=== PATIENT | female | born 1930 | race Caucasian/White ===

== ENCOUNTER → 2017-01-19 | Outpatient (REF) | payer MEDICARE ==
[~2017-01-19] MED LIST: ACET650T2 PO; AMLO25TA PO; ASPI81TA85 PO; ATOR40TA PO; FENO200C PO; INSUH10VL SC; INSULANT SC; LASI40TA PO; LIPI20TA PO; LOSA100T36 PO; MAGN500T2 PO; OMEP20CA3 PO; PLAV75TA38 PO; PRAM0.5T4 PO; TRAM50TA2 PO; TYLE325T5 PO
== END ==
LOC: M LAB REF 16:46
PROVIDERS: ATTEND Podiatrist
DX: E11.42 Type 2 diabetes mellitus with diabetic polyneuropathy (principal); L03.031 Cellulitis of right toe

== ENCOUNTER → 2018-04-12 | Outpatient (CLI) | payer MEDICARE ==
[2018-04-12 20:10] LABS: BASO # 0.1 10^3/uL (0.0-0.2); BASO % 0.7 % (0.0-1.0); EOS # 0.1 10^3/uL (0.0-0.50); EOS % 0.8 % (0.0-3.0); HEMATOCRIT 41.9 % (36.0-47.0); HEMOGLOBIN 13.5 g/dl (12.0-15.5); IMMATURE GRANULOCYTE % 0.2 % (0-3.0); LYMPH # 1.4 10^3/uL (1.5-4.5); LYMPH % 15.2 % (24.0-44.0); MEAN CORPUSCULAR HEMOGLOBIN 29.6 pg (27.0-33.0); MEAN CORPUSCULAR HGB CONC 32.2 g/dl (32.0-36.5); MEAN CORPUSCULAR VOLUME 91.9 fl (80.0-96.0); MONO # 0.9 10^3/uL (0.0-0.8); MONO % 10.2 % (0.0-5.0); NEUTROPHILS # 6.6 10^3/uL (1.8-7.7); NEUTROPHILS % 72.9 % (36.0-66.0); PLATELET COUNT, AUTOMATED 273 10^3/uL (150-450); RED BLOOD COUNT 4.56 10^6/uL (4.00-5.40); RED CELL DISTRIBUTION WIDTH 13.3 % (11.5-14.5); WHITE BLOOD COUNT 9.1 10^3/uL (4.0-10.0)
[2018-04-12 20:35] LABS: URIC ACID 5.4 MG/DL (2.6-6.0)
== END ==
LOC: M WUC 17:18
DX: M19.032 Primary osteoarthritis, left wrist (principal)
CPT/HCPCS: 84550

== ENCOUNTER 2018-06-02 18:01 | Emergency (ER) | payer MEDICARE ==
[2018-06-02] MEDS: ASPIRIN 81 MG CHEW TABLET PO (18:37)
[2018-06-02 18:44] LABS: BASO % 0.7 % (0.0-1.0); EOS # 0.1 10^3/uL (0.0-0.50); HEMOGLOBIN 12.9 g/dl (12.0-15.5); IMMATURE GRANULOCYTE % 0.2 % (0-3.0); LYMPH # 1.5 10^3/uL (1.5-4.5); MEAN CORPUSCULAR HEMOGLOBIN 29.6 pg (27.0-33.0); MEAN CORPUSCULAR HGB CONC 32.3 g/dl (32.0-36.5); MEAN CORPUSCULAR VOLUME 91.7 fl (80.0-96.0); MONO # 0.5 10^3/uL (0.0-0.8); MONO % 9.2 % (0.0-5.0); NEUTROPHILS # 3.4 10^3/uL (1.8-7.7); NEUTROPHILS % 60.9 % (36.0-66.0); PLATELET COUNT, AUTOMATED 242 10^3/uL (150-450); RED BLOOD COUNT 4.36 10^6/uL (4.00-5.40); RED CELL DISTRIBUTION WIDTH 13.7 % (11.5-14.5); WHITE BLOOD COUNT 5.6 10^3/uL (4.0-10.0)
[2018-06-02 18:54] LABS: INR 0.94; PROTHROMBIN TIME 12.7 SECONDS (12.1-14.4)
[2018-06-02 18:55] LABS: PARTIAL THROMBOPLASTIN TIME 26.4 SECONDS (25.4-37.6)
[2018-06-02 19:31] LABS: ANION GAP 8 MEQ/L (8-16); BLOOD UREA NITROGEN 32 MG/DL (7-18); CALCIUM LEVEL 8.8 MG/DL (8.8-10.2); CARBON DIOXIDE LEVEL 31 MEQ/L (21-32); CHLORIDE LEVEL 104 MEQ/L (98-107); CK-MB VALUE MASS 5.1 NG/ML (<3.6); CPK CREATINE PHOSPHOKINASE 196 U/L (26-192); CREATININE FOR GFR 1.44 MG/DL (0.55-1.30); GLOMERULAR FILTRATION RATE 36.5 (>32); GLUCOSE, FASTING 243 MG/DL (70-100); NT-PRO BNP 4335 PG/ML (<450); POTASSIUM SERUM 3.6 MEQ/L (3.5-5.1); SODIUM LEVEL 143 MEQ/L (136-145); TROPONIN I 0.21 NG/ML (< 0.10)
[2018-06-02] MEDS: HEPARIN SOD (PORCINE) 5000 UNITS/ML VIAL IV (20:32)
[2018-06-02] MEDS: HEPARIN DRIP 25,000 UNITS in APPROPRIATE DILUENT 1 EA IV (20:40)
[2018-06-02 20:57] LABS: BEDSIDE GLUCOSE 154 MG/DL (83-110)
== END 2018-06-02 21:18 | disposition short-term general hospital (02) ==
LOC: M ED 18:01
DX: I24.9 Acute ischemic heart disease, unspecified (principal); R06.02 Shortness of breath; I11.9 Hypertensive heart disease without heart failure; I25.10 Atherosclerotic heart disease of native coronary artery without angina pectoris; E78.5 Hyperlipidemia, unspecified; E11.9 Type 2 diabetes mellitus without complications; I69.354 Hemiplegia and hemiparesis following cerebral infarction affecting left non-dominant side; Z95.1 Presence of aortocoronary bypass graft; Z88.0 Allergy status to penicillin; Z79.899 Other long term (current) drug therapy; Z79.02 Long term (current) use of antithrombotics/antiplatelets; Z79.4 Long term (current) use of insulin; Z79.82 Long term (current) use of aspirin
CPT/HCPCS: 71045

== ENCOUNTER 2019-02-18 15:32 | Inpatient (IN) | payer MEDICARE, OTHER ==
[~2019-02-18] VITALS: Ht 162.6 cm; Wt 73.1 kg
[~2019-02-18 15:32] MED LIST changes: -ACET650T2 PO; +ACET650T3 PO; -ATOR40TA PO; +ATOR40TA75 PO; +DULO1CAP2 PO; -LASI40TA PO; +LASI40TA9 PO; -LOSA100T36 PO; +LOSA100T50 PO; +PLAV1TAB2 PO; -PLAV75TA38 PO; -PRAM0.5T4 PO; +PRAM0.5T7 PO; +TRAZ-160 PO; +TRIL1TAB PO
[2019-02-18] MEDS ORDERED: OMEP-218 PO (15:41)
[2019-02-18 16:40] LABS: BASO % 0.5 % (0.0-1.0); EOS # 0.1 10^3/uL (0.0-0.50); EOS % 0.6 % (0.0-3.0); HEMATOCRIT 42.8 % (36.0-47.0); HEMOGLOBIN 14.1 g/dl (12.0-15.5); LYMPH # 1.6 10^3/uL (1.5-4.5); LYMPH % 20.5 % (24.0-44.0); MEAN CORPUSCULAR HGB CONC 32.9 g/dl (32.0-36.5); MEAN CORPUSCULAR VOLUME 94.1 fl (80.0-96.0); MONO # 0.7 10^3/uL (0.0-0.8); MONO % 8.8 % (0.0-5.0); NEUTROPHILS # 5.3 10^3/uL (1.8-7.7); NEUTROPHILS % 69.5 % (36.0-66.0); PLATELET COUNT, AUTOMATED 226 10^3/uL (150-450); RED BLOOD COUNT 4.55 10^6/uL (4.00-5.40); WHITE BLOOD COUNT 7.7 10^3/uL (4.0-10.0)
[2019-02-18] MEDS ORDERED: ONDANSETRON 4MG/2ML VIAL (J2405) IV ONE (16:45)
[2019-02-18] MEDS ORDERED: MORPHINE 2 MG/ML 1ML SYRINGE (J2270) IV PRN (16:45)
[2019-02-18] MEDS ORDERED: NS 500 ML IV ONE (16:45)
[2019-02-18 16:49] LABS: INR 0.95; PROTHROMBIN TIME 12.8 SECONDS (12.1-14.4)
[2019-02-18] MEDS: GASTROGRAFIN SOLUTION 30ML PO SCH ×2 (17:09→17:57)
[2019-02-18 17:17] LABS: PARTIAL THROMBOPLASTIN TIME 26.9 SECONDS (25.4-37.6)
[2019-02-18 17:29] LABS: ALBUMIN 3.3 GM/DL (3.2-5.2); ALT/SGPT 22 U/L (12-78); BILIRUBIN,DIRECT 0.1 MG/DL (0.0-0.2); BILIRUBIN,TOTAL 0.5 MG/DL (0.2-1.0); LIPASE 147 U/L (73-393); TOTAL PROTEIN 6.9 GM/DL (6.4-8.2)
[2019-02-18 18:08] LABS: BLOOD UREA NITROGEN 15 MG/DL (7-18); CALCIUM LEVEL 9.1 MG/DL (8.8-10.2); CARBON DIOXIDE LEVEL 30 MEQ/L (21-32); CHLORIDE LEVEL 107 MEQ/L (98-107); CREATININE FOR GFR 0.98 MG/DL (0.55-1.30); GLOMERULAR FILTRATION RATE 56.9 (>32); GLUCOSE, FASTING 138 MG/DL (70-100); POTASSIUM SERUM 4.2 MEQ/L (3.5-5.1); SODIUM LEVEL 142 MEQ/L (136-145)
[2019-02-18] MEDS ORDERED: ISOVUE-370 76% 100ML VIAL (Q9967) As Ordered ONE (18:21)
--- NOTE | 2019-02-18 20:17 | REPVR ---
EXAM: CT Abdomen and Pelvis With Contrast EXAM DATE/TIME: 02/18/2019 7:21 PM CLINICAL HISTORY: 88 years old, female; Condition or disease; Hernia; Complications not specified; Incisional; Prior surgery; Surgery date: 6+ months; Surgery type: Appy; Additional info: Incarcerated incisional hernia, R/O ischemic bowel TECHNIQUE: Imaging protocol: Axial computed tomography images of the abdomen and pelvis with intravenous contrast. Coronal and sagittal reformatted images were created and reviewed. Radiation optimization: All CT scans at this facility use at least one of these dose optimization techniques: automated exposure control; mA and/or kV adjustment per patient size (includes targeted exams where dose is matched to clinical indication); or iterative reconstruction. Contrast material: ISOVUE 370; Contrast volume: 100 ml; Contrast route: IV; COMPARISON: No relevant prior studies available. FINDINGS: Lungs: No suspicious mass or airspace process in the visualized lung bases. Mediastinum: Small hiatal hernia is present. ABDOMEN: Liver: Liver appears normal with no focal abnormality. Gallbladder and bile ducts: Gallbladder is present and shows no evidence of gallstone. Pancreas: Pancreas appears normal. No focal mass or peripancreatic inflammation. Spleen: Spleen appears homogeneous without focal mass. Adrenals: Adrenal glands are normal in appearance. Kidneys and ureters: Kidneys appear normal, with no stone, solid mass or hydronephrosis. Stomach and bowel: No evidence of small bowel obstruction. No obvious bowel wall thickening or dilatation. Diverticular changes are present within the colon without inflammation. Appendix: Appendix is not seen. No RLQ inflammation to suggest appendicitis. PELVIS: Bladder: Bladder appears normal. Reproductive: Uterus is surgically absent. ABDOMEN and PELVIS: Intraperitoneal space: No pneumoperitoneum. Bones/joints: Degenerative changes are seen in the lumbar spine with disc height loss, endplate osteophytes and hypertrophic facet arthropathy. Soft tissues: Small umbilical hernia is present containing a nonobstructed, noninflamed knuckle of bowel. Vasculature: Abdominal aorta shows atherosclerotic change. No focal aneurysm or dissection. Calcified plaque is seen involving the celiac trunk and SMA origins and the origins of the right and left main renal arteries. Iliac arteries demonstrate atherosclerotic calcification but are patent. Main portal and splenic veins enhance normally. Lymph nodes: Normal. No enlarged lymph nodes. Other findings: Aortic valve prosthesis is present. IMPRESSION: 1. Atherosclerotic change involving the aorta and major branch vessels without occlusive lesion and without CT evidence of bowel ischemia. No evidence of aortic aneurysm or dissection. 2. No explanation for acute abdominal pain. 3. Small umbilical hernia containing a very short segment of nonobstructed non-inflamed small bowel 4. Small hiatal hernia Electronically signed by: Varun Wynn On 02/18/2019 20:16:45 PM
[2019-02-18] MEDS ORDERED: INSUH10VL SC ×2 (22:32)
[2019-02-18] MEDS ORDERED: PRAM1TAB7 PO (22:32)
[2019-02-18] MEDS ORDERED: METO1TAB32 PO (22:34)
[2019-02-18] MEDS ORDERED: LOSA50TA88 PO (22:34)
[2019-02-18] MEDS ORDERED: CALCIUM CARBONATE 500 MG CHEW U/D PO ONE (23:00)
--- NOTE | 2019-02-18 23:06 | REPVR ---
EXAM: US Abdomen Limited, Right Upper Quadrant EXAM DATE/TIME: 02/18/2019 10:31 PM CLINICAL HISTORY: 88 years old, female; Abdominal pain; Localized; Right upper quadrant (ruq); Additional info: Ruq pain; R/O gall stone TECHNIQUE: Imaging protocol: Real-time ultrasound of the abdomen with image documentation. Examination was focused on the right upper quadrant. COMPARISON: CT ABD/PEL W/IV ORAL CONTRAS 02/18/2019 7:07 PM FINDINGS: Liver: The liver is partially obscured by bowel gas. There may be moderate fatty infiltration of the liver. Gallbladder: Negative Ortiz's sign. The gallbladder wall measures 2 mm. There is no evidence of gallstones. There could be a small amount sludge in the gallbladder. Common bile duct: The common bile duct is normal in size measuring 5 mm. Pancreas: The pancreas is completely obscured by bowel gas and cannot be evaluated. Right kidney: The right kidney measures 8.3 CM in length by 3.9 cm thickness. Small right kidney. There is no evidence of hydronephrosis right kidney. Other findings: There is marked limitations of this study secondary to bowel gas. IMPRESSION: 1. Limited study secondary to bowel gas as discussed above. 2. No evidence of gallstones. 3. No evidence of biliary dilatation. Electronically signed by: Shin Sweeney On 02/18/2019 23:06:10 PM
[2019-02-18] MEDS ORDERED: MAALOX 30 ML SUSP *UDC PO PRN ×2 (23:30→23:45)
[2019-02-18] MEDS ORDERED: MOM 30ML SUSPENSION UDC PO PRN (23:30)
--- NOTE | 2019-02-18 23:48 | HPEPDOC ---
General Date of Admission Chief Complaint The patient is a 88-year-old female admitted with a reason for visit of Abdominal Pain. Source: Patient, RN/, Old records History of Present Illness Ms. Jean-Baptiste is an 88 years old woman Who presents to ER with c/o RUQ abdominal pain for couple of weeks. Pt states the pain occurs only when sitting up or standing; but goes away when lying. Pt had CT abd/pelv and US of liver int he ER: no acute findings to explain pt's pain. She was afraid to go home at night because she lives alone. She showed preference to stay overnight in the hospital. Vitals, mental status and other basic labs are fine. Home Medications Scheduled Amlodipine Besylate (Amlodipine Besylate) 2.5 Mg Tab, 2.5 MG PO DAILY, (Repo rted) Aspirin (Aspir 81) 81 Mg Tab, 81 MG PO DAILY, (Reported) Atorvastatin Calcium (Atorvastatin Calcium) 40 Mg Tab, 40 MG PO DAILY, (R eported) Clopidogrel Bisulfate (Plavix) 75 Mg Tab, 75 MG PO DAILY, (Reported) Furosemide (Lasix) 40 Mg Tab, 40 MG PO DAILY, (Reported) Insulin Glargine (Lantus) 1 Units/0.01 Ml Susp, 30 UNITS SC QAM, (Reported) Insulin Human Lispro (Novolog) 100 U/Ml Inj, 10 UNITS SC DAILY, (Reported) TAKES AT NOON Insulin Human Lispro (Novolog) 100 Unit/1 Ml Vial, 8 UNITS SC QAM, (Reported) Insulin Human Lispro (Novolog) 100 Unit/1 Ml Vial, 12 UNITS SC QPM, (Reported) TAKES AT SUPPERTIME Losartan Potassium (Losartan Potassium) 50 Mg Tablet, 25 MG PO QHS, (Reported) Magnesium Oxide (Magnesium Oxide) 500 Mg Tab, 500 MG PO DAILY, (Reported) Metoprolol Succinate (Metoprolol Succinate) 25 Mg Tab.er.24h, 25 MG PO QHS, (Reported) Oxcarbazepine (Trileptal) 300 Mg Tab, 300 MG PO TID, (Reported) PATIENT STATES SHE HASN'T TAKEN THIS FOR QUITE A WHILE BUT SHE WANTS TO SEE HER PHYSICIAN TO GET ANOTHER RX SO SHE CAN START TAKING IT AGAIN. Pramipexole Di-HCl (Pramipexole Dihydrochloride) 1 Mg Tablet, 1 MG PO QHS, (Reported) Trazodone HCl (Trazodone HCl) 50 Mg Tab, 25 MG PO QHS, (Reported) Scheduled PRN Acetaminophen (Pain Reliever) 650 Mg Tab, 650 MG PO Q6H PRN for PAIN, (Reported) Allergies Coded Allergies: Penicillins (Verified Allergy, Unknown, 02/18/19) Past Medical History Medical History CAD, CVA, HTN, IDDM, OA Surgical History Cardiac bypass, Appendectomy, Hysterectomy, Carotid repair Family History Significant Family History: Cancer, Heart disease Social History * Smoker: Denies Alcohol: Denies Drugs: denies A-FIB/CHADSVASC A-FIB History Current/History of A-Fib/PAF?: No Review of Systems Constitutional: Denies: Chills, Fever, Malaise Eyes: Denies: Pain ENT: Denies: Head Aches Skin: Denies: Rash, Lesions Pulmonary: Denies: Dyspnea, Cough Cardiovascular: Denies: Chest Pain, Palpitations, Edema, Lt Headedness Gastrointestinal: Reports: Abdominal Pain; Denies: Nausea, Vomiting, Diarrhea, Constipation Genitourinary: Denies: Dysuria, Frequency Musculoskeletal: Denies: Neck Pain, Back Pain Neurological: Denies: Weakness, Numbness Psych: Reports: Mood Normal; Denies: Anxiety Physical Examination General Exam: Positive: Alert, Cooperative, No Acute Distress Eye Exam: Positive: PERRLA ENT Exam: Positive: Atraumatic Neck Exam: Positive: Supple; Negative: JVD Chest Exam: Positive: Clear to auscultation, Normal air movement Heart Exam: Positive: Rate Normal, Regular Rhythm Abdomen Exam: Positive: Normal bowel sounds, Soft, Tenderness (RUQ tenderness on deep palpation) Extremity Exam: Negative: Edema Skin Exam: Positive: Nl turgor and temperature; Negative: Rash Neuro Exam: Positive: Normal Speech, Strength at 5/5 X4 ext Psych Exam: Positive: Mental status NL, Mood NL Vital Signs Vital Signs Date Time Temp Pulse Resp B/P (MAP) Pulse Ox O2 Delivery O2 Flow Rate FiO2 02/18/19 22:45 76 18 93 Room Air 02/18/19 22:30 179/76 (110) 02/18/19 21:00 98.4 02/18/19 16:32 2.0 Laboratory Data Labs 24H Laboratory Tests 2 02/18/19 16:25: Immature Granulocyte % (Auto) 0.1, White Blood Count 7.7, Red Blood Count 4.55, Hemoglobin 14.1, Hematocrit 42.8, Mean Corpuscular Volume 94.1, Mean Corpuscular Hemoglobin 31.0, Mean Corpuscular Hemoglobin Concent 32.9, Red Cell Distribution Width 13.2, Platelet Count 226, Neutrophils (%) (Auto) 69.5H, Lymphocytes (%) (Auto) 20.5L, Monocytes (%) (Auto) 8.8H, Eosinophils (%) (Auto) 0.6, Basophils (%) (Auto) 0.5, Neutrophils # (Auto) 5.3, Lymphocytes # (Auto) 1.6, Monocytes # (Auto) 0.7, Eosinophils # (Auto) 0.1, Basophils # (Auto) 0.0, Nucleated Red Blood Cells % (auto) 0.0, Prothrombin Time 12.8, Prothromb Time International Ratio 0.95, Activated Partial Thromboplast Time 26.9, Anion Gap 5L, Glomerular Filtration Rate 56.9, Lactic Acid Level 1.5, Calcium Level 9.1, Aspartate Amino Transf (AST/SGOT) 25, Alanine Aminotransferase (ALT/SGPT) 22, Alkaline Phosphatase 63, Total Bilirubin 0.5, Direct Bilirubin 0.1, Total Protein 6.9, Albumin 3.3, Albumin/Globulin Ratio 0.92L, Lipase 147 CBC/BMP Laboratory Tests 02/18/19 16:25 Red Blood Count 4.55, Mean Corpuscular Volume 94.1, Mean Corpuscular Hemoglobin 31.0, Mean Corpuscular Hemoglobin Concent 32.9, Red Cell Distribution Width 1 3.2, Neutrophils (%) (Auto) 69.5 H, Lymphocytes (%) (Auto) 20.5 L, Monocytes (%) (Auto) 8.8 H, Eosinophils (%) (Auto) 0.6, Basophils (%) (Auto) 0.5, Neutrophils # (Auto) 5.3, Lymphocytes # (Auto) 1.6, Monocytes # (Auto) 0.7, Eosinophils # (Auto) 0.1, Basophils # (Auto) 0.0 Microbiology Microbiology 02/18/19 Blood Culture, Received Pending 02/18/19 Blood Culture, Received Pending Assessment/Plan RUB Abdominal pain, Unclear Etiology - Normal CT and US of abdomen. - Possible Gastritis or PUD with atypical presentation; consider outpatient EGD; will keep pt on PPI and Maalox for now Continue home Meds for other chronic conditions. Plan / VTE VTE Prophylaxis Ordered?: No VTE Exclusion Mechanical Proph: Low Risk for VTE VTE Exclusion Pharmacological: At Low Risk for VTE Plan Anticipated Discharge: Home AL OBANDO MD February 18, 2019 23:48
[2019-02-19] MEDS: PANTOPRAZOLE 40MG INJ (PROTONIX) (C9113) IV SCH ×3 (00:15→23:49)
[2019-02-19 01:45] VITALS: BP 170/70
[2019-02-19 02:50] VITALS: BP 148/72
[2019-02-19 06:00] VITALS: BP 142/82
[2019-02-19] MEDS ORDERED: GLUCAGON FOR INJ 1 MG VIAL (J1610) SC PRN (08:45)
[2019-02-19] MEDS ORDERED: DEXTROSE 50% 50 ML SYRINGE IV PRN (08:45)
[2019-02-19] MEDS ORDERED: GLUCOSE 4 GM CHEW TABLET PO PRN (08:45)
[2019-02-19] MEDS: ASPIRIN 81 MG ENTERIC TAB PO SCH (09:06)
[2019-02-19] MEDS: FUROSEMIDE 40 MG TAB PO SCH (09:06)
[2019-02-19] MEDS: ATORVASTATIN 20 MG TAB PO SCH (09:06)
[2019-02-19] MEDS: CLOPIDOGREL 75 MG TAB PO SCH (09:06)
[2019-02-19] MEDS: OXcarbazepine 300 MG TAB PO SCH ×3 (09:07→20:16)
[2019-02-19] MEDS: LEVEMIR (INSULIN DETEMIR) 1 UNITS/0.01ML SC SCH (09:07)
--- NOTE | 2019-02-19 09:19 | IPNPDOC ---
Text Note Date of Service The patient was seen on 02/19/19. NOTE No acute events overnight. Tolerating diet. Denies nausea, emesis, or fevers. She is still having positional pain in the upper and middle abdomen that radiates around the right side with any movement. This is making it difficult for her to walk. VSSAF NAD abd - soft, TTP upper abdomen and over the umbilical hernia that is easily reducible, no rebound or guarding labs - below A) 88y/o female with nonspecific abd pain radiating around the right side. This could be due to the reducible umbilical hernia, but the pain seems to be way out of proportion to the hernia. P) reg diet PO pain control NSAIDS plan on d/c home once pain is controlled, and if we can't get her pain controlled then I can consider hernia repair once the hospitalist rules out everything else. Rupert New DO A-FIB/CHADSVASC A-FIB History Current/History of A-Fib/PAF?: No VS,Fishbone, I+O VS, Fishbone, I+O Laboratory Tests 02/18/19 16:25 Red Blood Count 4.55, Mean Corpuscular Volume 94.1, Mean Corpuscular Hemoglobin 31.0, Mean Corpuscular Hemoglobin Concent 32.9, Red Cell Distribution Width 13.2, Neutrophils (%) (Auto) 69.5 H, Lymphocytes (%) (Auto) 20.5 L, Monocytes (%) (Auto) 8.8 H, Eosinophils (%) (Auto) 0.6, Basophils (%) (Auto) 0.5, Neutrophils # (Auto) 5.3, Lymphocytes # (Auto) 1.6, Monocytes # (Auto) 0.7, Eosinophils # (Auto) 0.1, Basophils # (Auto) 0.0 Vital Signs Date Time Temp Pulse Resp B/P (MAP) Pulse Ox O2 Delivery O2 Flow Rate FiO2 02/19/19 09:07 71 140/84 02/19/19 06:00 97.4 18 96 02/19/19 01:00 Room Air 02/18/19 16:32 2.0 I&O- Last 24 Hours up to 6 AM 02/19/19 06:00 Intake Total 0 ml Output Total 0 ml Balance 0 ml MALORIE NEW DO February 19, 2019 09:19
[2019-02-19] MEDS: ACETAMINOPHEN TAB 650MG DOSE (2X325MG) PO PRN ×2 (12:25→21:06)
[2019-02-19] MEDS: HumaLOG INSULIN (NovoLOG) PER UNIT SC SCH ×3 (12:25→20:11)
--- NOTE | 2019-02-19 13:02 | IPNPDOC ---
Text Note Date of Service The patient was seen on 02/19/19. NOTE Subjective: Patient is an 88-year-old female with a PMHx of CAD, HTN, Hx of CVA, IDDM2, Osteoarthritis who presented to the ER with complaints of abdominal pain. Patient is reported that her pain has begun in the center of her abdomen and radiates towards the right side of her back. Upon arrival to the emergency room, patient had received imaging and lab work. Imaging was consistent with an umbilical hernia, all of this has been negative. Patient was admitted to hospitalist service for further evaluation and treatment. Surgery was called on consultation. Patient was seen and examined at the bedside. Currently patient still reports abdominal pain. Denies nausea or vomiting. Denies any diarrhea. Denies any discomfort with urination. Patient has been able to tolerate some oral intake. She denies chest pain, shortness of breath or palpitations. Objective: Vitals (See below) General: Lying in bed, reports pain, AAOx3 HEENT: NC, AT CVS: RRR, +S1S2 Lungs: Fair air entry b/l, -w/r/r Abdomen: Soft, ND, mild tenderness, +Umbical hernia that is reducible Extremities: - Edema, - Calf tenderness Skin: Evaluation of her abdominal and skin on her back does not reveal any gross findings Assessment and plan: Abdominal pain; more significant at epigastric / RUQ - Patient is reported abdominal pain for 1 day duration - Physical. Has not reveal any significant tenderness on palpation; there is a reducible hernia - Lab work is unremarkable for leukocytosis or lactic acidosis; Lipase normal - CT abdomen / pelvis 02/18: 1. Atherosclerotic change involving the aorta and major branch vessels without occlusive lesion and without CT evidence of bowel ischemia. No evidence of aortic aneurysm or dissection. 2. No explanation for acute abdominal pain. 3. Small umbilical hernia containing a very short segment of nonobstructed non-inflamed small bowel 4. Small hiatal hernia - US abdomen 02/18: 1. Limited study secondary to bowel gas as discussed above. 2. No evidence of gallstones. 3. No evidence of biliary dilatation. - Will check LDH, H. pylori workup - Will check UA - Will continue with Tylenol for pain - c/w Protonix and Maalox - Surgery has been called on consultation; appreciate their input CAD - c/w ASA, Atorvastatin and Plavix HTN - BP appears well controlled - c/w Amlodipine, Losartan, Metoprolol, Furosemide Hx of CVA - c/w ASA, Atorvastatin IDDM2 - c/w ISS and Levemir Neuropathic pain - c/w Oxcarbazepine Insomnia - c/w Trazodone Osteoarthritis - c/w Tylenol PRN DVT prophylaxis - Will start Heparin VS,Fishbone, I+O VS, Fishbone, I+O Laboratory Tests 02/18/19 16:25 Red Blood Count 4.55, Mean Corpuscular Volume 94.1, Mean Corpuscular Hemoglobin 31.0, Mean Corpuscular Hemoglobin Concent 32.9, Red Cell Distribution Width 13.2, Neutrophils (%) (Auto) 69.5 H, Lymphocytes (%) (Auto) 20.5 L, Monocytes (%) (Auto) 8.8 H, Eosinophils (%) (Auto) 0.6, Basophils (%) (Auto) 0.5, Neutrophils # (Auto) 5.3, Lymphocytes # (Auto) 1.6, Monocytes # (Auto) 0.7, Eosinophils # (Auto) 0.1, Basophils # (Auto) 0.0 Vital Signs Date Time Temp Pulse Resp B/P (MAP) Pulse Ox O2 Delivery O2 Flow Rate FiO2 02/19/19 09:07 71 140/84 02/19/19 06:00 97.4 18 96 02/19/19 01:00 Room Air 02/18/19 16:32 2.0 I&O- Last 24 Hours up to 6 AM 02/19/19 06:00 Intake Total 0 ml Output Total 0 ml Balance 0 ml FRANCO FARMER MD February 19, 2019 13:02
[2019-02-19 13:19] LABS: LDH LACTATE DEHYDROGENASE 320 U/L (84-246)
[2019-02-19 13:51] LABS: H PYLORI QUALITATIVE IgG NEGATIVE (NEGATIVE)
[2019-02-19 14:00] VITALS: BP 162/70
[2019-02-19] MEDS: HEPARIN SOD (PORCINE) 5000 UNITS/ML VIAL SQ SCH ×2 (14:00→21:05)
[2019-02-19 14:28] LABS: APPEARANCE, URINE CLEAR (CLEAR); BACTERIA, URINE AUTO NEGATIVE (NEGATIVE); BILIRUBIN, URINE AUTO NEGATIVE (NEGATIVE); BLOOD, URINE BLOOD NEGATIVE (NEGATIVE); COLOR, URINE STRAW (YELLOW); GLUCOSE, URINE (UA) AUTO NEGATIVE (NEGATIVE); KETONE, URINE AUTO NEGATIVE (NEGATIVE); LEUKOCYTE ESTERASE, URINE AUTO TRACE (NEGATIVE); MUCUS, URINE SMALL (NEGATIVE); NITRITE, URINE AUTO NEGATIVE (NEGATIVE); PROTEIN, URINE AUTO NEGATIVE (NEGATIVE); RBC, URINE AUTO 0 /HPF (0-3); SPECIFIC GRAVITY URINE AUTO 1.008 (1.002-1.035); SQUAMOUS EPITHELIAL CELL UR AU 0 /HPF (0-6); UROBILINOGEN, URINE AUTO 0.2 mg/dL (0.0-2.0); WBC, URINE AUTO 2 /HPF (0-3)
--- NOTE | 2019-02-19 17:43 | ECGEPIP ---
Stationary ECG Study [facility] [place] - ED Test Date: 2019-02-18 Pat Name: CHANI ORTIZ Department: Room: - Gender: F Seo Analyst: ashvin : [id number] Requested By: Katie Amos Order Number: [id number] Reading MD: Katie Amos Measurements Intervals [place] Rate: 66 P: 78 HI: 239 QRS: -10 QRSD: 96 T: -23 QT: 393 QTc: 414 Interpretive Statements ELECTRONIC ATRIAL [employer]EM[employer]ER ST DEVIATION AND MODERATE T-WAVE ABNORMALITY, CONSIDER ANTERIOR ISCHEMIA, MORE PRONOUNCED COMPARED 06/02/18 Electronically Signed On 02-19-2019 17:43:24 EDT by Katie Amos
[2019-02-19] MEDS: LOSARTAN 25 MG TAB PO SCH (20:15)
[2019-02-19] MEDS: METOPROLOL SUCC *XL* 25MG TAB (TopROL *XL*) PO SCH (20:16)
[2019-02-19] MEDS: traZODone 25MG PER 1/2 TABLET PO SCH (20:16)
[2019-02-19 22:00] VITALS: BP 150/62
[2019-02-20] MEDS: ACETAMINOPHEN TAB 650MG DOSE (2X325MG) PO PRN ×5 (01:56→21:30)
[2019-02-20] MEDS: HEPARIN SOD (PORCINE) 5000 UNITS/ML VIAL SQ SCH ×3 (05:53→21:28)
[2019-02-20 06:00] VITALS: BP 172/80
[2019-02-20 06:44] VITALS: BP 158/82
[2019-02-20 07:35] LABS: BASO % 0.5 % (0.0-1.0); EOS % 0.4 % (0.0-3.0); HEMATOCRIT 42.5 % (36.0-47.0); LYMPH # 1.2 10^3/uL (1.5-4.5); LYMPH % 16.1 % (24.0-44.0); MEAN CORPUSCULAR HEMOGLOBIN 30.8 pg (27.0-33.0); MEAN CORPUSCULAR HGB CONC 32.9 g/dl (32.0-36.5); MEAN CORPUSCULAR VOLUME 93.6 fl (80.0-96.0); MONO # 0.5 10^3/uL (0.0-0.8); MONO % 6.3 % (0.0-5.0); NEUTROPHILS # 5.6 10^3/uL (1.8-7.7); NEUTROPHILS % 76.6 % (36.0-66.0); PLATELET COUNT, AUTOMATED 200 10^3/uL (150-450); RED BLOOD COUNT 4.54 10^6/uL (4.00-5.40); WHITE BLOOD COUNT 7.4 10^3/uL (4.0-10.0)
[2019-02-20] MEDS: OXcarbazepine 300 MG TAB PO SCH ×3 (07:53→21:29)
[2019-02-20] MEDS: ATORVASTATIN 20 MG TAB PO SCH (07:53)
[2019-02-20] MEDS: FUROSEMIDE 40 MG TAB PO SCH (07:54)
[2019-02-20] MEDS: CLOPIDOGREL 75 MG TAB PO SCH (07:54)
[2019-02-20] MEDS: ASPIRIN 81 MG ENTERIC TAB PO SCH (07:54)
[2019-02-20] MEDS: HumaLOG INSULIN (NovoLOG) PER UNIT SC SCH ×4 (07:55→20:28)
[2019-02-20] MEDS: LEVEMIR (INSULIN DETEMIR) 1 UNITS/0.01ML SC SCH (07:55)
[2019-02-20 07:58] LABS: CALCIUM LEVEL 8.4 MG/DL (8.8-10.2); CREATININE FOR GFR 1.08 MG/DL (0.55-1.30); GLOMERULAR FILTRATION RATE 50.9 (>32); MAGNESIUM LEVEL 1.8 MG/DL (1.8-2.4); POTASSIUM SERUM 3.8 MEQ/L (3.5-5.1)
[2019-02-20] MEDS ORDERED: GABAPENTIN 100 MG CAP PO SCH (09:00)
[2019-02-20] MEDS ORDERED: PILL CRUSHER/CUTTER 1 EACH XX PRN (09:15)
[2019-02-20] MEDS ORDERED: tiZANidine 4 MG TAB PO ONE (09:15)
--- NOTE | 2019-02-20 09:17 | IPNPDOC ---
Text Note Date of Service The patient was seen on 02/20/19. NOTE No acute events overnight. Tolerating diet. Denies nausea, emesis, or fevers. She is still having positional pain in the upper and middle abdomen that radiates around the right side with any movement. This is making it difficult for her to walk. VSSAF NAD abd - soft, TTP upper abdomen and over the umbilical hernia that is easily reducible, no rebound or guarding labs - below A) 88y/o female with nonspecific abd pain radiating around the right side. This could be due to the reducible umbilical hernia, but the pain seems to be way out of proportion to the hernia. P) reg diet PO pain control NSAIDS muscle relaxers I'm still not convinced that her pain is all coming from the small reducible hernia, but it is possible. I would recommend exhausting medical management prior to considering surgery. She will likely need surgery in the future, but her pain still seems to be out of proportion for just a hernia. I will continue to follow closely, and if she does not improve, then we can consider surgery. Rupert New DO A-FIB/CHADSVASC A-FIB History Current/History of A-Fib/PAF?: No VS,Fishbone, I+O VS, Fishbone, I+O Laboratory Tests 02/20/19 07:24 Red Blood Count 4.54, Mean Corpuscular Volume 93.6, Mean Corpuscular Hemoglobin 30.8, Mean Corpuscular Hemoglobin Concent 32.9, Red Cell Distribution Width 13.2, Neutrophils (%) (Auto) 76.6 H, Lymphocytes (%) (Auto) 16.1 L, Monocytes (%) (Auto) 6.3 H, Eosinophils (%) (Auto) 0.4, Basophils (%) (Auto) 0.5, Neutrophils # (Auto) 5.6, Lymphocytes # (Auto) 1.2 L, Monocytes # (Auto) 0.5, Eosinophils # (Auto) 0.0, Basophils # (Auto) 0.0, Calcium Level 8.4 L Vital Signs Date Time Temp Pulse Resp B/P (MAP) Pulse Ox O2 Delivery O2 Flow Rate FiO2 02/20/19 07:54 70 158/82 02/20/19 06:00 97.4 20 96 02/19/19 01:00 Room Air 02/18/19 16:32 2.0 I&O- Last 24 Hours up to 6 AM 02/20/19 06:00 Intake Total 570 ml Output Total 300 ml Balance 270 ml MALORIE NEW DO February 20, 2019 09:17
--- NOTE | 2019-02-20 11:42 | IPNPDOC ---
Text Note Date of Service The patient was seen on 02/20/19. NOTE Subjective: Patient is an 88-year-old female with a PMHx of CAD, HTN, Hx of CVA, IDDM2, Osteoarthritis who presented to the ER with complaints of abdominal pain. Patient is reported that her pain has begun in the center of her abdomen and radiates towards the right side of her back. Upon arrival to the emergency room, patient had received imaging and lab work. Imaging was consistent with an umbilical hernia, all of this has been negative. Patient was admitted to hospitalist service for further evaluation and treatment. Surgery was called on consultation. Patient was seen and examined at the bedside. Currently patient still reports some right side / flank / back pain, extending around into her abdomen. She reports this as a spasm type pain. She again has not expense, nausea, vomiting or diarrhea. Does not express any urinary discomfort. Does report a poor appetite. Denies chest pain, shortness of breath or palpitations. She denies any aggravating movements; reported that when she experienced the pain. She was working on a quilt. Objective: Vitals (See below) General: Lying in bed, reports pain, AAOx3 HEENT: NC, AT CVS: RRR, +S1S2 Lungs: Fair air entry b/l, no evidence of wheezing, rales or rhonchi Abdomen: Soft, ND, mild tenderness, +Umbical hernia that is reducible Back: Tenderness around R paraspinal muscle group Extremities: No evidence of LE pitting edema, - Calf tenderness Skin: Evaluation of her abdominal and skin on her back does not reveal any gross findings, no rashes of note Assessment and plan: Right back / flank / abdominal pain - Patient is reported abdominal pain started when she was working on her quilt - Physical. Has not reveal any significant tenderness on palpation; there is a reducible hernia - Lab work is unremarkable for leukocytosis or lactic acidosis; Lipase normal - LDH mildly elevated, H. pylori workup - IgG negative; IgM pending - UA without evidence of blood - CT abdomen / pelvis 02/18: 1. Atherosclerotic change involving the aorta and major branch vessels without occlusive lesion and without CT evidence of bowel ischemia. No evidence of aortic aneurysm or dissection. 2. No explanation for acute abdominal pain. 3. Small umbilical hernia containing a very short segment of nonobstructed non-inflamed small bowel 4. Small hiatal hernia - US abdomen 02/18: 1. Limited study secondary to bowel gas as discussed above. 2. No evidence of gallstones. 3. No evidence of biliary dilatation. - Will get MRI lumbar spine without contrast and US of abdomen to evaluate flow flow to Celiac / SMA / JA - c/w Tylenol for pain; will start Tizanidine - c/w Protonix and Maalox - Surgery has been called on consultation; appreciate their input CAD - c/w ASA, Atorvastatin and Plavix HTN - BP appears well controlled - c/w Amlodipine, Losartan, Metoprolol, Furosemide Hx of CVA - c/w ASA, Atorvastatin IDDM2 - c/w ISS and Levemir Neuropathic pain - c/w Oxcarbazepine Insomnia - c/w Trazodone Osteoarthritis - c/w Tylenol PRN DVT prophylaxis - c/w Heparin VS,Fishbone, I+O VS, Fishbone, I+O Laboratory Tests 02/20/19 07:24 Red Blood Count 4.54, Mean Corpuscular Volume 93.6, Mean Corpuscular Hemoglobin 30.8, Mean Corpuscular Hemoglobin Concent 32.9, Red Cell Distribution Width 13 .2, Neutrophils (%) (Auto) 76.6 H, Lymphocytes (%) (Auto) 16.1 L, Monocytes (%) (Auto) 6.3 H, Eosinophils (%) (Auto) 0.4, Basophils (%) (Auto) 0.5, Neutrophils # (Auto) 5.6, Lymphocytes # (Auto) 1.2 L, Monocytes # (Auto) 0.5, Eosinophils # (Auto) 0.0, Basophils # (Auto) 0.0, Calcium Level 8.4 L Vital Signs Date Time Temp Pulse Resp B/P (MAP) Pulse Ox O2 Delivery O2 Flow Rate FiO2 02/20/19 07:54 70 158/82 02/20/19 06:00 97.4 20 96 02/19/19 01:00 Room Air 02/18/19 16:32 2.0 I&O- Last 24 Hours up to 6 AM 02/20/19 06:00 Intake Total 570 ml Output Total 300 ml Balance 270 ml FRANCO FARMER MD February 20, 2019 11:42
[2019-02-20] MEDS: PANTOPRAZOLE 40MG INJ (PROTONIX) (C9113) IV SCH (11:49)
--- NOTE | 2019-02-20 11:59 | CR ---
DATE OF CONSULTATION: 02/18/2019 CHIEF COMPLAINT: Abdominal pain. HISTORY OF PRESENT ILLNESS : The patient is an 88-year-old female who presented to the emergency room with complaints of abdominal pain that has been going on for the last 2 weeks and getting steadily worse. There is no pain when she is sitting down or lying down, but when she stands up or moves she has significant pain in her lower abdomen that radiates around to the right flank. She was brought into emergency room, had multiple normal labs. CT scan was essentially normal other than a small reducible umbilical hernia. Recommendation from me was to discharge her home and followup with me in the office and we could schedule for an outpatient robotic surgery. However, since they cannot get her pain under control she was not comfortable leaving and she has been admitted to the hospitalist service. She denies having any pains like this in the past. This has just gradually increase over the last 2 weeks. She notices it a lot if she is sitting up straight or leaning against a counter. She has not had any trauma to the abdomen. No changes in medications. No recent illnesses or travel. No recent surgical procedures of any kind. She is unaware that she has an umbilical hernia. She has never had any pain or lumps there that she could feel, and the pain has just been getting slowly worse over last few days. PAST MEDICAL HISTORY: 1. Coronary artery disease. 2. CVA. 3. Hypertension. 4. Diabetes. 5. Osteoarthritis. PAST SURGICAL HISTORY: 1. Cardiac bypass. 2. Appendectomy. 3. Hysterectomy. 4. Carotid artery repair. ALLERGIES: PENICILLIN. HOME MEDICATIONS: Please see med rec. FAMILY HISTORY: Noncontributory. SOCIAL HISTORY: Negative. REVIEW OF SYSTEMS: Pertinent positive and negatives as stated in the HPI. PHYSICAL EXAMINATION: General: Patient is awake, alert, no acute distress. HEENT: Pupils equal, round and react to light and accommodation. Heart: S1, S2, regular rate and rhythm. Lungs: Clear to auscultation bilaterally. Abdomen: Soft, tender palpation periumbilically and in the right lower quadrant. No rebounding, guarding or rigidity. There is a definite umbilical hernia that is very easy to reduce. No signs of incarceration or strangulation. LABORATORY DATA: White count 7.7, hemoglobin 14.1, platelets 226. Potassium 4.2, creatinine 0.98, lactic acid 1.5. IMAGING: CT abdomen and pelvis shows atherosclerotic changes involving the aorta and the major branch vessels without occlusive lesions and without CT evidence of bowel ischemia. No evidence of any aneurysm or dissection. No explanation for acute abdominal pain. There is a small umbilical hernia containing a very short segment of nonobstructed, noninflamed small bowel and a small hiatal hernia. ASSESSMENT: Patient an 88-year-old female, nonspecific abdominal pain from the umbilicus radiating around the right flank. Pain is mainly positional. At this time, the pain appears to be out of proportion for such a small easily reducible umbilical hernia. Recommendation is to continue to treat medically, continue to evaluate for any other possible sources for her pain. She can be on a regular diet. We will treat her for possible inflammation of the hernia with some Tylenol and Motrin, and possibly some muscle relaxers. If her pain can be controlled, we will discharge her home and I can followup with her outpatient to have this repaired. Otherwise, if we cannot get her pain under control over the next couple days, then we can discuss surgery during his inpatient stay. Thank you for consult.
[2019-02-20 14:00] VITALS: BP 150/65
[2019-02-20] MEDS: tiZANidine 4 MG TAB PO SCH ×2 (17:05→21:28)
[2019-02-20] MEDS: METOPROLOL SUCC *XL* 25MG TAB (TopROL *XL*) PO SCH (21:29)
[2019-02-20] MEDS: LOSARTAN 25 MG TAB PO SCH (21:29)
[2019-02-20] MEDS: traZODone 25MG PER 1/2 TABLET PO SCH (21:29)
[2019-02-20 22:00] VITALS: BP 134/63
[2019-02-21] MEDS: PANTOPRAZOLE 40MG INJ (PROTONIX) (C9113) IV SCH ×2 (00:09→12:12)
[2019-02-21 05:48] LABS: BASO % 0.5 % (0.0-1.0); EOS # 0.1 10^3/uL (0.0-0.50); EOS % 1.3 % (0.0-3.0); HEMOGLOBIN 13.3 g/dl (12.0-15.5); LYMPH # 1.7 10^3/uL (1.5-4.5); LYMPH % 21.7 % (24.0-44.0); MEAN CORPUSCULAR HGB CONC 33.3 g/dl (32.0-36.5); MEAN CORPUSCULAR VOLUME 93.2 fl (80.0-96.0); MONO # 0.7 10^3/uL (0.0-0.8); MONO % 9.4 % (0.0-5.0); NEUTROPHILS # 5.1 10^3/uL (1.8-7.7); NEUTROPHILS % 66.8 % (36.0-66.0); PLATELET COUNT, AUTOMATED 198 10^3/uL (150-450); RED BLOOD COUNT 4.29 10^6/uL (4.00-5.40); WHITE BLOOD COUNT 7.6 10^3/uL (4.0-10.0)
[2019-02-21] MEDS: HEPARIN SOD (PORCINE) 5000 UNITS/ML VIAL SQ SCH ×3 (05:54→21:13)
[2019-02-21 06:00] VITALS: BP 144/83
[2019-02-21 06:15] LABS: CALCIUM LEVEL 8.7 MG/DL (8.8-10.2); CREATININE FOR GFR 1.21 MG/DL (0.55-1.30); GLOMERULAR FILTRATION RATE 44.6 (>32); MAGNESIUM LEVEL 1.7 MG/DL (1.8-2.4); POTASSIUM SERUM 3.4 MEQ/L (3.5-5.1)
[2019-02-21] MEDS: ATORVASTATIN 20 MG TAB PO SCH (08:17)
[2019-02-21] MEDS: LEVEMIR (INSULIN DETEMIR) 1 UNITS/0.01ML SC SCH (08:18)
[2019-02-21] MEDS: FUROSEMIDE 40 MG TAB PO SCH (08:18)
[2019-02-21] MEDS: ASPIRIN 81 MG ENTERIC TAB PO SCH (08:18)
[2019-02-21] MEDS: CLOPIDOGREL 75 MG TAB PO SCH (08:19)
[2019-02-21] MEDS: OXcarbazepine 300 MG TAB PO SCH ×3 (08:19→21:12)
[2019-02-21] MEDS: tiZANidine 4 MG TAB PO SCH ×3 (08:19→21:12)
[2019-02-21] MEDS: HumaLOG INSULIN (NovoLOG) PER UNIT SC SCH ×4 (08:31→21:00)
--- NOTE | 2019-02-21 09:17 | IPNPDOC ---
Text Note Date of Service The patient was seen on 02/21/19. NOTE No acute events overnight. Tolerating diet. Denies nausea, emesis, or fevers. She is still having positional pain in the upper and middle abdomen that radiates around the right side with any movement, but it is improving and she is able to walk around now. VSSAF NAD abd - soft, TTP upper abdomen and over the umbilical hernia that is easily reducible, no rebound or guarding labs - below A) 88y/o female with nonspecific abd pain radiating around the right side. This could be due to the reducible umbilical hernia, but the pain seems to be way out of proportion to the hernia. The pain is slightly improved. P) reg diet PO pain control NSAIDS muscle relaxers I'm still not convinced that her pain is completely from the hernia still. I spoke with Dr. Cruz this am, and he agrees. We will continue to watch her and plan to discharge her if she is feeling better and plan for elective hernia repair as an outpatient. Rupert New DO A-FIB/CHADSVASC A-FIB History Current/History of A-Fib/PAF?: No VS,Fishbone, I+O VS, Fishbone, I+O Laboratory Tests 02/21/19 05:33 Red Blood Count 4.29, Mean Corpuscular Volume 93.2, Mean Corpuscular Hemoglobin 31.0, Mean Corpuscular Hemoglobin Concent 33.3, Red Cell Distribution Width 13.3, Neutrophils (%) (Auto) 66.8 H, Lymphocytes (%) (Auto) 21.7 L, Monocytes (%) (Auto) 9.4 H, Eosinophils (%) (Auto) 1.3, Basophils (%) (Auto) 0.5, Neutro phils # (Auto) 5.1, Lymphocytes # (Auto) 1.7, Monocytes # (Auto) 0.7, Eosinophils # (Auto) 0.1, Basophils # (Auto) 0.0, Calcium Level 8.7 L Vital Signs Date Time Temp Pulse Resp B/P (MAP) Pulse Ox O2 Delivery O2 Flow Rate FiO2 02/21/19 08:29 78 188/80 02/21/19 06:00 97.9 20 96 02/19/19 01:00 Room Air 02/18/19 16:32 2.0 I&O- Last 24 Hours up to 6 AM 02/21/19 05:59 Intake Total 1830 ml Output Total 800 ml Balance 1030 ml MALORIE NEW DO February 21, 2019 09:17
--- NOTE | 2019-02-21 10:44 | IPNPDOC ---
Text Note Date of Service The patient was seen on 02/21/19. NOTE Subjective: Patient is an 88-year-old female with a PMHx of CAD, HTN, Hx of CVA, IDDM2, Osteoarthritis who presented to the ER with complaints of abdominal pain. Patient is reported that her pain has begun in the center of her abdomen and radiates towards the right side of her back. Upon arrival to the emergency room, patient had received imaging and lab work. Imaging was consistent with an umbilical hernia, all of this has been negative. Patient was admitted to hospitalist service for further evaluation and treatment. Surgery was called on consultation. Patient was seen and examined at the bedside. Patient reports that her abdominal pain is doing slightly better. Patient is reported that her abdominal pain. Location is changed. Denies any nausea or vomiting. Reports that she's expressing some constipation and has not had a bowel movement since admission. Patient denies chest pain, shortness of breath, palpitations. Objective: Vitals (See below) General: Lying in bed, reports pain, AAOx3 HEENT: NC, AT CVS: RRR, +S1S2 Lungs: There is fair bilaterally without evidence of rhonchi, rales or wheezing Abdomen: Soft, tenderness at R of umbilicus, +Umbical hernia that is reducible Back: Tenderness around R paraspinal muscle group Extremities: LE are without edema, - Calf tenderness Skin: Evaluation of her abdominal and skin on her back does not reveal any gross findings, no rashes of note Assessment and plan: Right back / flank / abdominal pain - Patient is reported abdominal pain started when she was working on her quilt - Physical. Has not reveal any significant tenderness on palpation; there is a reducible hernia - Lab work is unremarkable for leukocytosis or lactic acidosis; Lipase normal - LDH mildly elevated, H. pylori workup - IgG negative; IgM pending - UA without evidence of blood - CT abdomen / pelvis 02/18: 1. Atherosclerotic change involving the aorta and major branch vessels without occlusive lesion and without CT evidence of bowel ischemia. No evidence of aortic aneurysm or dissection. 2. No explanation for acute abdominal pain. 3. Small umbilical hernia containing a very short segment of nonobstructed non-inflamed small bowel 4. Small hiatal hernia - US abdomen 02/18: 1. Limited study secondary to bowel gas as discussed above. 2. No evidence of gallstones. 3. No evidence of biliary dilatation. - US abdomen unable to completed because of bowel gas pattern - c/w Tylenol and Tizanidine - c/w Protonix and Maalox - Surgery has been called on consultation; appreciate their input CAD - c/w ASA, Atorvastatin and Plavix HTN - BP appears well controlled - c/w Amlodipine, Losartan, Metoprolol, Furosemide Hx of CVA - c/w ASA, Atorvastatin IDDM2 - c/w ISS and Levemir Neuropathic pain - c/w Oxcarbazepine Insomnia - c/w Trazodone Osteoarthritis - c/w Tylenol PRN DVT prophylaxis - c/w Heparin VS,Fishbone, I+O VS, Fishbone, I+O Laboratory Tests 02/21/19 05:33 Red Blood Count 4.29, Mean Corpuscular Volume 93.2, Mean Corpuscular Hemoglobin 31.0, Mean Corpuscular Hemoglobin Concent 33.3, Red Cell Distribution Width 13.3, Neutrophils (%) (Auto) 66.8 H, Lymphocytes (%) (Auto) 21.7 L, Monocytes (%) (Auto) 9.4 H, Eosinophils (%) (Auto) 1.3, Basophils (%) (Auto) 0.5, Neutrophils # (Auto) 5.1, Lymphocytes # (Auto) 1.7, Monocytes # (Auto) 0.7, Eosinophils # (Auto) 0.1, Basophils # (Auto) 0.0, Calcium Level 8.7 L Vital Signs Date Time Temp Pulse Resp B/P (MAP) Pulse Ox O2 Delivery O2 Flow Rate FiO2 02/21/19 08:29 78 188/80 02/21/19 06:00 97.9 20 96 02/19/19 01:00 Room Air 02/18/19 16:32 2.0 I&O- Last 24 Hours up to 6 AM 02/21/19 06:00 Intake Total 1530 ml Output Total 800 ml Balance 730 ml FRANCO FARMER MD February 21, 2019 10:44
[2019-02-21] MEDS ORDERED: MAG SULF 1GM/100ML (MAG RUN) 1 GM in APPROPRIATE DILUENT 1 EA IV ONE (11:00)
[2019-02-21] MEDS ORDERED: POTASSIUM CHLORIDE 10 MEQ SR TABLET PO ONE (11:00)
[2019-02-21 14:00] VITALS: BP 138/60
--- NOTE | 2019-02-21 16:53 | REP ---
LIMITED ABDOMINAL ULTRASOUND: Limited abdominal ultrasound was performed to evaluate celiac and superior mesenteric artery. However these arteries could not be visualized due to overlying bowel gas. Electronically Signed by Darrel Rosales MD 02/21/2019 07:53 P
[2019-02-21] MEDS ORDERED: NYSTATIN 100,000 UNITS/GM TOPICAL PWD 15 GM TOP SCH (21:00)
[2019-02-21] MEDS: LOSARTAN 25 MG TAB PO SCH (21:11)
[2019-02-21] MEDS: traZODone 25MG PER 1/2 TABLET PO SCH (21:11)
[2019-02-21] MEDS: METOPROLOL SUCC *XL* 25MG TAB (TopROL *XL*) PO SCH (21:12)
[2019-02-21] MEDS: ACETAMINOPHEN TAB 650MG DOSE (2X325MG) PO PRN (21:15)
[2019-02-21] MEDS: NYSTATIN 100,000 UNITS/GM TOPICAL PWD 15 GM TOP SCH (21:18)
[2019-02-21 22:00] VITALS: BP 151/66
[2019-02-22] MEDS: PANTOPRAZOLE 40MG INJ (PROTONIX) (C9113) IV SCH ×2 (01:13→12:49)
[2019-02-22] MEDS: ACETAMINOPHEN TAB 650MG DOSE (2X325MG) PO PRN ×2 (01:21→06:48)
[2019-02-22 05:55] LABS: BASO # 0.1 10^3/uL (0.0-0.2); BASO % 0.5 % (0.0-1.0); EOS # 0.1 10^3/uL (0.0-0.50); EOS % 1.3 % (0.0-3.0); HEMATOCRIT 41.8 % (36.0-47.0); HEMOGLOBIN 13.9 g/dl (12.0-15.5); LYMPH # 1.8 10^3/uL (1.5-4.5); LYMPH % 18.7 % (24.0-44.0); MEAN CORPUSCULAR HGB CONC 33.3 g/dl (32.0-36.5); MEAN CORPUSCULAR VOLUME 93.1 fl (80.0-96.0); MONO # 0.8 10^3/uL (0.0-0.8); MONO % 8.4 % (0.0-5.0); NEUTROPHILS # 6.8 10^3/uL (1.8-7.7); NEUTROPHILS % 70.8 % (36.0-66.0); PLATELET COUNT, AUTOMATED 208 10^3/uL (150-450); RED BLOOD COUNT 4.49 10^6/uL (4.00-5.40); WHITE BLOOD COUNT 9.6 10^3/uL (4.0-10.0)
[2019-02-22 06:00] VITALS: BP 149/64
[2019-02-22 06:19] LABS: CALCIUM LEVEL 8.5 MG/DL (8.8-10.2); CREATININE FOR GFR 1.26 MG/DL (0.55-1.30); GLOMERULAR FILTRATION RATE 42.6 (>32); MAGNESIUM LEVEL 2.3 MG/DL (1.8-2.4); POTASSIUM SERUM 3.7 MEQ/L (3.5-5.1)
[2019-02-22] MEDS: HEPARIN SOD (PORCINE) 5000 UNITS/ML VIAL SQ SCH ×3 (06:47→21:35)
[2019-02-22] MEDS: HumaLOG INSULIN (NovoLOG) PER UNIT SC SCH ×4 (07:30→21:00)
[2019-02-22] MEDS: NYSTATIN 100,000 UNITS/GM TOPICAL PWD 15 GM TOP SCH ×2 (08:11→21:35)
[2019-02-22] MEDS: ATORVASTATIN 20 MG TAB PO SCH (08:11)
[2019-02-22] MEDS: FUROSEMIDE 40 MG TAB PO SCH (08:12)
[2019-02-22] MEDS: tiZANidine 4 MG TAB PO SCH ×3 (08:12→21:35)
[2019-02-22] MEDS: CLOPIDOGREL 75 MG TAB PO SCH (08:12)
[2019-02-22] MEDS: ASPIRIN 81 MG ENTERIC TAB PO SCH (08:12)
[2019-02-22] MEDS: OXcarbazepine 300 MG TAB PO SCH ×3 (08:12→21:35)
[2019-02-22] MEDS: LEVEMIR (INSULIN DETEMIR) 1 UNITS/0.01ML SC SCH (08:14)
--- NOTE | 2019-02-22 11:03 | IPNPDOC ---
Text Note Date of Service The patient was seen on 02/22/19. NOTE Subjective: Patient is an 88-year-old female with a PMHx of CAD, HTN, Hx of CVA, IDDM2, Osteoarthritis who presented to the ER with complaints of abdominal pain. Patient is reported that her pain has begun in the center of her abdomen and radiates towards the right side of her back. Upon arrival to the emergency room, patient had received imaging and lab work. Imaging was consistent with an umbilical hernia, all of this has been negative. Patient was admitted to hospitalist service for further evaluation and treatment. Surgery was called on consultation. Patient was seen and examined at the bedside. Patient continues to make progress with physical therapy, was ambulating about 80 feet yesterday. She reports that her abdominal pain that radiates around her back is doing significantly better today. Although has not yet resolved. Patient denies any nausea or vomiting. She has had 5 bowel movements yesterday. Denies any discomfort with urination. Patient denied any chest pain, shortness of breath or palpitations. Objective: Vitals (See below) General: Lying in bed, reports pain, AAOx3 HEENT: NC, AT CVS: RRR, +S1S2 Lungs: Air entry is fair bilaterally, no auscultated evidence of wheezing, rales or rhonchi Abdomen: Abdomen remains soft. There is no distention, and on deep palpation there does not appear to be any significant tenderness, +Umbical hernia that is reducible Back: Tenderness around R paraspinal muscle group still noted Extremities: LE are without edema, - Calf tenderness Skin: Evaluation of her abdominal and skin on her back does not reveal any gross findings, no rashes of note Assessment and plan: Right back / flank / abdominal pain - Patient is reported abdominal pain started when she was working on her quilt - She is indicated that her abdominal pain / back pain is doing significantly better - Lab work is unremarkable for leukocytosis or lactic acidosis; Lipase normal - LDH mildly elevated, H. pylori workup - IgG negative; IgM pending - UA without evidence of blood - CT abdomen / pelvis 02/18: 1. Atherosclerotic change involving the aorta and major branch vessels without occlusive lesion and without CT evidence of bowel ischemia. No evidence of aortic aneurysm or dissection. 2. No explanation for acute abdominal pain. 3. Small umbilical hernia containing a very short segment of nonobstructed non-inflamed small bowel 4. Small hiatal hernia - US abdomen 02/18: 1. Limited study secondary to bowel gas as discussed above. 2. No evidence of gallstones. 3. No evidence of biliary dilatation. 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 - c/w Tylenol and Tizanidine - c/w Protonix and Maalox - Surgery has been called on consultation; appreciate their input CAD - c/w ASA, Atorvastatin and Plavix HTN - BP appears well controlled - c/w Amlodipine, Losartan, Metoprolol, Furosemide Hx of CVA - c/w ASA, Atorvastatin IDDM2 - c/w ISS and Levemir Neuropathic pain - c/w Oxcarbazepine Insomnia - c/w Trazodone Osteoarthritis - c/w Tylenol PRN DVT prophylaxis - c/w Heparin Disposition: - Will continue with physical therapy - Patient is indicated that she may need additional help at home; discussed with PFS and case management will look into further options for assistance at home VS,Laya, I+O VS, Laya, I+O Laboratory Tests 02/22/19 05:38 Red Blood Count 4.49, Mean Corpuscular Volume 93.1, Mean Corpuscular Hemoglobin 31.0, Mean Corpuscular Hemoglobin Concent 33.3, Red Cell Distribution Width 13.3, Neutrophils (%) (Auto) 70.8 H, Lymphocytes (%) (Auto) 18.7 L, Monocytes (%) (Auto) 8.4 H, Eosinophils (%) (Auto) 1.3, Basophils (%) (Auto) 0.5, Neutrophils # (Auto) 6.8, Lymphocytes # (Auto) 1.8, Monocytes # (Auto) 0.8, Eosinophils # (Auto) 0.1, Basophils # (Auto) 0.1, Calcium Level 8.5 L Vital Signs Date Time Temp Pulse Resp B/P (MAP) Pulse Ox O2 Delivery O2 Flow Rate FiO2 02/22/19 08:14 69 138/62 02/22/19 06:00 97.7 18 95 02/19/19 01:00 Room Air 02/18/19 16:32 2.0 I&O- Last 24 Hours up to 6 AM 02/22/19 06:00 Intake Total 1980 ml Output Total 2220 ml Balance -240 ml FRANCO FARMER MD February 22, 2019 11:03
[2019-02-22 14:00] VITALS: BP_SYST 102; BP_SYST 126; BP_DIAS 45; BP_DIAS 71
--- NOTE | 2019-02-22 15:11 | IPNPDOC ---
Text Note Date of Service The patient was seen on 02/22/19. NOTE No acute events overnight. Tolerating diet. Denies nausea, emesis, or fevers. The abd pain is significantly improved today after having a few BMs yesterday. No other complaints. VSSAF NAD abd - soft, NT, ND labs - below A) 88y/o female with nonspecific abd pain radiating around the right side. This could be due to the reducible umbilical hernia, but the pain seems to be way out of proportion to the hernia. The pain is almost completely resolved now. P) reg diet PO pain control NSAIDS muscle relaxers follow up in office if pain returns. Rupert New DO A-FIB/CHADSVASC A-FIB History Current/History of A-Fib/PAF?: No VS,Fishbone, I+O VS, Fishbone, I+O Laboratory Tests 02/22/19 05:38 Red Blood Count 4.49, Mean Corpuscular Volume 93.1, Mean Corpuscular Hemoglobin 31.0, Mean Corpuscular Hemoglobin Concent 33.3, Red Cell Distribution Width 13.3, Neutrophils (%) (Auto) 70.8 H, Lymphocytes (%) (Auto) 18.7 L, Monocytes (%) (Auto) 8.4 H, Eosinophils (%) (Auto) 1.3, Basophils (%) (Auto) 0.5, Neutrophils # (Auto) 6.8, Lymphocytes # (Auto) 1.8, Monocytes # (Auto) 0.8, Eosinophils # (Auto) 0.1, Basophils # (Auto) 0.1, Calcium Level 8.5 L Vital Signs Date Time Temp Pulse Resp B/P (MAP) Pulse Ox O2 Delivery O2 Flow Rate FiO2 02/22/19 14:00 97.6 61 18 126/71 (89) 99 02/19/19 01:00 Room Air 02/18/19 16:32 2.0 I&O- Last 24 Hours up to 6 AM 02/22/19 06:00 Intake Total 1980 ml Output Total 2220 ml Balance -240 ml MALORIE NEW DO February 22, 2019 15:11
[2019-02-22] MEDS: METOPROLOL SUCC *XL* 25MG TAB (TopROL *XL*) PO SCH (21:34)
[2019-02-22] MEDS: LOSARTAN 25 MG TAB PO SCH (21:34)
[2019-02-22] MEDS: traZODone 25MG PER 1/2 TABLET PO SCH (21:34)
[2019-02-22 22:00] VITALS: BP 160/68
[2019-02-23] MEDS: PANTOPRAZOLE 40MG INJ (PROTONIX) (C9113) IV SCH ×3 (00:17→23:06)
[2019-02-23] MEDS: ACETAMINOPHEN TAB 650MG DOSE (2X325MG) PO PRN ×4 (00:18→16:49)
[2019-02-23] MEDS: HEPARIN SOD (PORCINE) 5000 UNITS/ML VIAL SQ SCH ×3 (05:40→22:21)
[2019-02-23 06:00] VITALS: BP 144/52
[2019-02-23 06:13] LABS: BASO # 0.1 10^3/uL (0.0-0.2); BASO % 0.6 % (0.0-1.0); EOS # 0.2 10^3/uL (0.0-0.50); EOS % 2.3 % (0.0-3.0); HEMATOCRIT 39.9 % (36.0-47.0); HEMOGLOBIN 13.3 g/dl (12.0-15.5); LYMPH # 1.8 10^3/uL (1.5-4.5); LYMPH % 21.9 % (24.0-44.0); MEAN CORPUSCULAR HEMOGLOBIN 30.4 pg (27.0-33.0); MEAN CORPUSCULAR HGB CONC 33.3 g/dl (32.0-36.5); MEAN CORPUSCULAR VOLUME 91.3 fl (80.0-96.0); MONO # 0.7 10^3/uL (0.0-0.8); MONO % 9.1 % (0.0-5.0); NEUTROPHILS # 5.4 10^3/uL (1.8-7.7); NEUTROPHILS % 65.9 % (36.0-66.0); PLATELET COUNT, AUTOMATED 219 10^3/uL (150-450); RED BLOOD COUNT 4.37 10^6/uL (4.00-5.40); WHITE BLOOD COUNT 8.1 10^3/uL (4.0-10.0)
[2019-02-23 06:39] LABS: CALCIUM LEVEL 8.5 MG/DL (8.8-10.2); CREATININE FOR GFR 1.1 MG/DL (0.55-1.30); GLOMERULAR FILTRATION RATE 49.8 (>32); POTASSIUM SERUM 3.6 MEQ/L (3.5-5.1)
[2019-02-23] MEDS: ASPIRIN 81 MG ENTERIC TAB PO SCH (08:43)
[2019-02-23] MEDS: ATORVASTATIN 20 MG TAB PO SCH (08:43)
[2019-02-23] MEDS: tiZANidine 4 MG TAB PO SCH ×3 (08:43→22:21)
[2019-02-23] MEDS: CLOPIDOGREL 75 MG TAB PO SCH (08:43)
[2019-02-23] MEDS: FUROSEMIDE 40 MG TAB PO SCH (08:43)
[2019-02-23] MEDS: NYSTATIN 100,000 UNITS/GM TOPICAL PWD 15 GM TOP SCH ×2 (08:48→22:24)
[2019-02-23] MEDS: HumaLOG INSULIN (NovoLOG) PER UNIT SC SCH ×4 (08:48→22:21)
[2019-02-23] MEDS: LEVEMIR (INSULIN DETEMIR) 1 UNITS/0.01ML SC SCH (08:49)
[2019-02-23] MEDS: OXcarbazepine 300 MG TAB PO SCH ×3 (08:49→22:20)
--- NOTE | 2019-02-23 10:26 | IPNPDOC ---
Text Note Date of Service The patient was seen on 02/23/19. NOTE Subjective: Patient is an 88-year-old female with a PMHx of CAD, HTN, Hx of CVA, IDDM2, Osteoarthritis who presented to the ER with complaints of abdominal pain. Patient is reported that her pain has begun in the center of her abdomen and radiates towards the right side of her back. Upon arrival to the emergency room, patient had received imaging and lab work. Imaging was consistent with an umbilical hernia, all of this has been negative. Patient was admitted to hospitalist service for further evaluation and treatment. Surgery was called on consultation. Patient was seen and examined at the bedside. Patient has been up and ambulating with physical therapy and has been able to walk to the bathroom. Patient reports her abdominal pain/back pain is doing better. . She is indicated that her pain does better with compression. Patient denies chest pain, short of breath, palpitations. Denies any nausea or vomiting. Does any urinary discomfort. Objective: Vitals (See below) General: Lying in bed, reports pain, AAOx3 HEENT: NC, AT CVS: RRR, +S1S2 Lungs: Remains fair bilaterally, without auscultated evidence of rhonchi /rales/wheezing Abdomen: Abdomen is soft, no distention. No tenderness on deep palpation. Reducible umbilical hernia Back: Tenderness around R paraspinal muscle group remains unchanged Extremities: LE are without edema, - Calf tenderness Skin: Evaluation of skin of abdomen and back do not reveal any rashes or lesions Assessment and plan: Right back / flank / abdominal pain - Patient is reported abdominal pain started when she was working on her quilt - Patient continues to have clinical improvement in will continue to work with physical therapy - Lab work is unremarkable for leukocytosis or lactic acidosis; Lipase normal - LDH mildly elevated, H. pylori workup - IgG negative; IgM pending - UA without evidence of blood - CT abdomen / pelvis 02/18: 1. Atherosclerotic change involving the aorta and major branch vessels without occlusive lesion and without CT evidence of bowel ischemia. No evidence of aortic aneurysm or dissection. 2. No explanation for acute abdominal pain. 3. Small umbilical hernia containing a very short segment of nonobstructed non-inflamed small bowel 4. Small hiatal hernia - US abdomen 02/18: 1. Limited study secondary to bowel gas as discussed above. 2. No evidence of gallstones. 3. No evidence of biliary dilatation. 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 - c/w Tylenol and Tizanidine - c/w Protonix and Maalox - Surgery has been called on consultation; appreciate their input CAD - c/w ASA, Atorvastatin and Plavix HTN - BP appears well controlled - c/w Amlodipine, Losartan, Metoprolol, Furosemide Hx of CVA - c/w ASA, Atorvastatin IDDM2 - c/w ISS and Levemir Neuropathic pain - c/w Oxcarbazepine Insomnia - c/w Trazodone Osteoarthritis - c/w Tylenol PRN DVT prophylaxis - c/w Heparin Disposition: - Will continue with physical therapy; anticipate the patient will require 1-2 more sessions - Patient is indicated that she may need additional help at home; discussed with PFS and case management will look into further options for assistance at home VS,Fishbone, I+O VS, Fishbone, I+O Laboratory Tests 02/23/19 05:44 Red Blood Count 4.37, Mean Corpuscular Volume 91.3, Mean Corpuscular Hemoglobin 30.4, Mean Corpuscular Hemoglobin Concent 33.3, Red Cell Distribution Width 13.2, Neutrophils (%) (Auto) 65.9, Lymphocytes (%) (Auto) 21.9 L, Monocytes (%) (Auto) 9.1 H, Eosinophils (%) (Auto) 2.3, Basophils (%) (Auto) 0.6, Neutrophils # (Auto) 5.4, Lymphocytes # (Auto) 1.8, Monocytes # (Auto) 0.7, Eosinophils # (Auto) 0.2, Basophils # (Auto) 0.1, Calcium Level 8.5 L Vital Signs Date Time Temp Pulse Resp B/P (MAP) Pulse Ox O2 Delivery O2 Flow Rate FiO2 02/23/19 08:48 71 131/39 02/23/19 06:00 97.0 16 98 02/19/19 01:00 Room Air 02/18/19 16:32 2.0 I&O- Last 24 Hours up to 6 AM 02/23/19 06:00 Intake Total 1520 ml Output Total 1650 ml Balance -130 ml FRANCO FARMER MD February 23, 2019 10:26
[2019-02-23 14:00] VITALS: BP 134/58
[2019-02-23 22:00] VITALS: BP 100/62
[2019-02-23] MEDS: METOPROLOL SUCC *XL* 25MG TAB (TopROL *XL*) PO SCH (22:20)
[2019-02-23] MEDS: LOSARTAN 25 MG TAB PO SCH (22:20)
[2019-02-23] MEDS: traZODone 25MG PER 1/2 TABLET PO SCH (22:20)
[2019-02-24] MEDS: ACETAMINOPHEN TAB 650MG DOSE (2X325MG) PO PRN (01:44)
[2019-02-24 01:53] VITALS: BP 164/82
[2019-02-24 06:00] VITALS: BP 149/67
[2019-02-24] MEDS: HEPARIN SOD (PORCINE) 5000 UNITS/ML VIAL SQ SCH ×2 (06:07→14:20)
[2019-02-24 06:36] LABS: BASO % 0.5 % (0.0-1.0); EOS # 0.2 10^3/uL (0.0-0.50); HEMATOCRIT 41.7 % (36.0-47.0); HEMOGLOBIN 13.8 g/dl (12.0-15.5); LYMPH # 1.7 10^3/uL (1.5-4.5); LYMPH % 21.8 % (24.0-44.0); MEAN CORPUSCULAR HEMOGLOBIN 30.1 pg (27.0-33.0); MEAN CORPUSCULAR HGB CONC 33.1 g/dl (32.0-36.5); MEAN CORPUSCULAR VOLUME 90.8 fl (80.0-96.0); MONO # 0.7 10^3/uL (0.0-0.8); MONO % 8.6 % (0.0-5.0); NEUTROPHILS # 5.3 10^3/uL (1.8-7.7); NEUTROPHILS % 66.8 % (36.0-66.0); PLATELET COUNT, AUTOMATED 229 10^3/uL (150-450); RED BLOOD COUNT 4.59 10^6/uL (4.00-5.40); WHITE BLOOD COUNT 7.9 10^3/uL (4.0-10.0)
[2019-02-24 06:55] LABS: CALCIUM LEVEL 8.4 MG/DL (8.8-10.2); CREATININE FOR GFR 1.13 MG/DL (0.55-1.30); GLOMERULAR FILTRATION RATE 48.3 (>32); POTASSIUM SERUM 3.4 MEQ/L (3.5-5.1)
[2019-02-24] MEDS ORDERED: POTASSIUM CHLORIDE 10 MEQ SR TABLET PO ONE (07:45)
[2019-02-24] MEDS ORDERED: TIZA4TAB4 PO (09:44)
[2019-02-24] MEDS: ATORVASTATIN 20 MG TAB PO SCH (09:54)
[2019-02-24] MEDS: ASPIRIN 81 MG ENTERIC TAB PO SCH (09:54)
[2019-02-24] MEDS: CLOPIDOGREL 75 MG TAB PO SCH (09:55)
[2019-02-24] MEDS: tiZANidine 4 MG TAB PO SCH (09:55)
[2019-02-24 09:58] VITALS: BP 169/59
[2019-02-24] MEDS: FUROSEMIDE 40 MG TAB PO SCH (09:58)
[2019-02-24] MEDS: NYSTATIN 100,000 UNITS/GM TOPICAL PWD 15 GM TOP SCH (09:58)
[2019-02-24] MEDS: OXcarbazepine 300 MG TAB PO SCH (09:58)
[2019-02-24] MEDS: HumaLOG INSULIN (NovoLOG) PER UNIT SC SCH ×2 (09:59→12:15)
[2019-02-24] MEDS: LEVEMIR (INSULIN DETEMIR) 1 UNITS/0.01ML SC SCH (09:59)
[2019-02-24] MEDS: PANTOPRAZOLE 40MG INJ (PROTONIX) (C9113) IV SCH (12:00)
[2019-02-24 14:00] VITALS: BP 133/60
--- NOTE | 2019-02-24 15:09 | DS.PDOC ---
Discharge Summary General Date of Admission February 20, 2019 at 11:30 Date of Discharge 02/24/2019 Discharge Summary PROCEDURES PERFORMED DURING STAY: [None]. ADMITTING DIAGNOSES / DISCHARGE DIAGNOSES: Right back / flank / abdominal pain - suspected to be 2/2 musculoskeletal etiology, possibly impinged nerve, less likely 2/2 intra-abdominal source CAD HTN Hx of CVA IDDM2 Neuropathic pain Insomnia Osteoarthritis DVT prophylaxis COMPLICATIONS/CHIEF COMPLAINT: Right back / side / abdominal pain HISTORY OF PRESENT ILLNESS: Patient is an 88-year-old female with a PMHx of CAD, HTN, Hx of CVA, IDDM2, Osteoarthritis who presented to the ER with complaints of abdominal pain. Patient is reported that her pain has begun in the center of her abdomen and radiates towards the right side of her back. Upon arrival to the emergency room, patient had received imaging and lab work. Imaging was consistent with an umbilical hernia, all of this has been negative. Patient was admitted to hospitalist service for further evaluation and treatment. Surgery was called on consultation. HOSPITAL COURSE: Right back / flank / abdominal pain - suspected to be 2/2 musculoskeletal etiology, possibly impinged nerve, less likely 2/2 intra-abdominal source - Patient is reported abdominal pain started when she was working on her quilt - Patient continues to have clinical improvement in will continue to work with physical therapy - Lab work is unremarkable for leukocytosis or lactic acidosis; Lipase normal - LDH mildly elevated, H. pylori workup - IgG negative; IgM pending - UA without evidence of blood - CT abdomen / pelvis 02/18: 1. Atherosclerotic change involving the aorta and major branch vessels without occlusive lesion and without CT evidence of bowel ischemia. No evidence of aortic aneurysm or dissection. 2. No explanation for acute abdominal pain. 3. Small umbilical hernia containing a very short segment of nonobstructed non-inflamed small bowel 4. Small hiatal hernia - US abdomen 02/18: 1. Limited study secondary to bowel gas as discussed above. 2. No evidence of gallstones. 3. No evidence of biliary dilatation. 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 ALLERGIES: Please see below. PHYSICAL EXAMINATION ON DISCHARGE: Vitals (See below) General: Lying in bed, no acute distress, comfortable, ambulating, AAOx3 HEENT: NC, AT CVS: RRR, +S1S2 Lungs: Fair b/l, no rhonchi / rales / wheezing Abdomen: Abdomen is soft, reducible umbilical hernia, -distention / no deep tenderness on palpation Back: Mild tenderness around R upper lumbar paraspinal muscles Extremities: LE are without edema, - Calf tenderness Skin: Evaluation of skin of abdomen and back do not reveal any rashes or lesions LABORATORY DATA: Please see below. ACTIVITY: [As tolerated]. DISCHARGE PLAN: Follow up with Dr. Feliz Sarmiento and Dr. New within 7 days Remain compliant with treatment plan and medications Return to the ER if you experience any problems DISPOSITION: Home with services DISCHARGE CONDITION: [Stable]. TIME SPENT ON DISCHARGE: 40 minutes Vital Signs/I&Os Vital Signs Date Time Temp Pulse Resp B/P (MAP) Pulse Ox O2 Delivery O2 Flow Rate FiO2 02/24/19 14:00 97.0 70 20 133/60 (84) 98 02/19/19 01:00 Room Air 02/18/19 16:32 2.0 I&O- Last 24 Hours up to 6 AM 02/24/19 06:00 Intake Total 1530 ml Output Total 1800 ml Balance -270 ml Laboratory Data Labs 24H Laboratory Tests 2 02/23/19 16:06: Bedside Glucose (Misc Panel) 240H 02/23/19 20:59: Bedside Glucose (Misc Panel) 293H 02/24/19 06:09: Immature Granulocyte % (Auto) 0.3, White Blood Count 7.9, Red Blood Count 4.59, Hemoglobin 13.8, Hematocrit 41.7, Mean Corpuscular Volume 90.8, Mean Corpuscular Hemoglobin 30.1, Mean Corpuscular Hemoglobin Concent 33.1, Red Cell Distribution Width 13.3, Platelet Count 229, Neutrophils (%) (Auto) 66.8H, Lymphocytes (%) (Auto) 21.8L, Monocytes (%) (Auto) 8.6H, Eosinophils (%) (Auto) 2.0, Basophils (%) (Auto) 0.5, Neutrophils # (Auto) 5.3, Lymphocytes # (Auto) 1.7, Monocytes # (Auto) 0.7, Eosinophils # (Auto) 0.2, Basophils # (Auto) 0.0, Nucleated Red Blood Cells % (auto) 0.0, Anion Gap 4L, Glomerular Filtration Rate 48.3, Blood Urea Nitrogen 26H, Creatinine 1.13, Sodium Level 139, Potassium Level 3.4L, Chloride Level 104, Carbon Dioxide Level 31, Calcium Level 8.4L, Magnesium Level 2.0 02/24/19 11:21: Bedside Glucose (Misc Panel) 220H CBC/BMP Laboratory Tests 02/24/19 06:09 Red Blood Count 4.59, Mean Corpuscular Volume 90.8, Mean Corpuscular Hemoglobin 30.1, Mean Corpuscular Hemoglobin Concent 33.1, Red Cell Distribution Width 13.3, Neutrophils (%) (Auto) 66.8 H, Lymphocytes (%) (Auto) 21.8 L, Monocytes (%) (Auto) 8.6 H, Eosinophils (%) (Auto) 2.0, Basophils (%) (Auto) 0.5, Neutrophils # (Auto) 5.3, Lymphocytes # (Auto) 1.7, Monocytes # (Auto) 0.7, Eosinophils # (Auto) 0.2, Basophils # (Auto) 0.0, Calcium Level 8.4 L FSBS Laboratory Tests Test 02/23/19 16:06 02/23/19 20:59 02/24/19 11:21 Range/Units Bedside Glucose (Misc Panel) 240 293 220 83-110 MG/DL Microbiology Microbiology 02/18/19 Blood Culture - Final, Complete NO GROWTH AFTER 5 DAYS 02/18/19 Blood Culture - Final, Complete NO GROWTH AFTER 5 DAYS Discharge Medications Scheduled Amlodipine Besylate (Amlodipine Besylate) 2.5 Mg Tab, 2.5 MG PO DAILY, (Reported) Aspirin (Aspir 81) 81 Mg Tab, 81 MG PO DAILY, (Reported) Atorvastatin Calcium (Atorvastatin Calcium) 40 Mg Tab, 40 MG PO DAILY, (Reported) Clopidogrel Bisulfate (Plavix) 75 Mg Tab, 75 MG PO DAILY, (Reported) Furosemide (Lasix) 40 Mg Tab, 40 MG PO DAILY, (Reported) Insulin Glargine (Lantus) 1 Units/0.01 Ml Susp, 30 UNITS SC QAM, (Reported) Insulin Human Lispro (Novolog) 100 U/Ml Inj, 10 UNITS SC DAILY, (Reported) TAKES AT NOON Insulin Human Lispro (Novolog) 100 Unit/1 Ml Vial, 8 UNITS SC QAM, (Reported) Insulin Human Lispro (Novolog) 100 Unit/1 Ml Vial, 12 UNITS SC QPM, (Reported) TAKES AT SUPPERTIME Losartan Potassium (Losartan Potassium) 50 Mg Tablet, 25 MG PO QHS, (Reported) Magnesium Oxide (Magnesium Oxide) 500 Mg Tab, 500 MG PO DAILY, (Reported) Metoprolol Succinate (Metoprolol Succinate) 25 Mg Tab.er.24h, 25 MG PO QHS, (Reported) Oxcarbazepine (Trileptal) 300 Mg Tab, 300 MG PO TID, (Reported) PATIENT STATES SHE HASN'T TAKEN THIS FOR QUITE A WHILE BUT SHE WANTS TO SEE HER PHYSICIAN TO GET ANOTHER RX SO SHE CAN START TAKING IT AGAIN. Pramipexole Di-HCl (Pramipexole Dihydrochloride) 1 Mg Tablet, 1 MG PO QHS, (Reported) Tizanidine HCl (Tizanidine HCl) 4 Mg Tablet, 4 MG PO TID Scheduled PRN Acetaminophen (Pain Reliever) 650 Mg Tab, 650 MG PO Q6H PRN for PAIN, (Reported) Allergies Coded Allergies: Penicillins (Verified Allergy, Unknown, 02/18/19) FRANCO FARMER MD February 24, 2019 15:09
== END 2019-02-24 15:58 | disposition home or self-care (01) | DRG 392 ==
LOC: M ED 15:32 → M ED INP 23:27 → UNDOADMOB 23:27 → M ED INP 02-19 01:41 → M MSPAV 02-19 01:41 → OBSVTOIN 02-20 11:30 → INTOOBSV 02-20 11:30
PROVIDERS: ADMIT Internal Medicine; ATTEND Internal Medicine
DX: R10.31 Right lower quadrant pain (principal); I25.10 Atherosclerotic heart disease of native coronary artery without angina pectoris; I10 Essential (primary) hypertension; E11.9 Type 2 diabetes mellitus without complications; M19.90 Unspecified osteoarthritis, unspecified site; K28.9 Gastrojejunal ulcer, unspecified as acute or chronic, without hemorrhage or perforation; G47.00 Insomnia, unspecified; M79.2 Neuralgia and neuritis, unspecified; K42.9 Umbilical hernia without obstruction or gangrene; Z66 Do not resuscitate; Z86.73 Personal history of transient ischemic attack (TIA), and cerebral infarction without residual deficits; Z79.82 Long term (current) use of aspirin; Z79.4 Long term (current) use of insulin; Z79.899 Other long term (current) drug therapy; Z88.0 Allergy status to penicillin; Z95.1 Presence of aortocoronary bypass graft; Z90.49 Acquired absence of other specified parts of digestive tract; Z90.710 Acquired absence of both cervix and uterus